=== PATIENT | female | born 1930 | race Hispanic/Latino ===

== ENCOUNTER 2018-09-21 10:14 | Outpatient (CLI) | payer MEDICARE, BC | END 2018-09-21 10:15 | disposition home or self-care (01) | LOC: LAB 10:14 ==

== ENCOUNTER 2018-10-04 08:16 | Emergency (ER) | payer MEDICARE, BC ==
[2018-10-04 08:18] VITALS: BMI 21.7
--- NOTE | 2018-10-04 08:39 | ED PDOC ---
Arrival/HPI - General Historian: Patient, Family - History of Present Illness Narrative History of Present Illness (Text): Patient is a 88 yr old female with PMH HTN, HLD, CHF with pacemaker, afib, hypothyroidism who was BIBA after waking up this morning with a sharp "pinching" pain in her left chest. She was given ASA in the field and reports resolution of the pain at this time. She otherwise denies KELLOGG, diaphoresis, dizziness, current CP, SOB, f/c, abdominal pain, n/v, dysuria, stool changes and extremity pain or weakness. 10/04/18 08:36 Time/Duration: Prior to Arrival, 1 hour Symptom Onset: Sudden Symptom Course: Resolved Quality: Other (pinching) Severity Level: 6 Activities at Onset: Rest, Sleeping <Eileen Escudero - Last Filed: 10/04/18 16:46> <Reynaldo Sánchez DO - Last Filed: 10/04/18 17:02> - General Chief Complaint: Chest Pain Time Seen by Provider: 10/04/18 08:26 Past Medical History - Provider Review Nursing Documentation Reviewed: Yes <Eileen Escudero - Last Filed: 10/04/18 16:46> Family/Social History - Physician Review Nursing Documentation Reviewed: Yes Family/Social History: Unknown Family HX <Eileen Escudero - Last Filed: 10/04/18 16:46> Allergies/Home Meds <Eileen Escudero - Last Filed: 10/04/18 16:46> <Reynaldo Sánchez DO - Last Filed: 10/04/18 17:02> Allergies/Adverse Reactions: Allergies No Known Allergies Allergy (Verified 01/19/12 09:26) Home Medications: Home Meds Medication Instructions Recorded Confirmed Aspirin 81 mg PO DAILY 05/06/13 05/06/13 Carvedilol [Coreg] 12.5 mg PO BID 05/06/13 05/06/13 Diazepam 5 mg PO BID PRN 05/06/13 05/06/13 Digoxin [Digox] 0.125 mg PO DAILY 05/06/13 05/06/13 Ezetimibe [Zetia] 10 mg PO DAILY 05/06/13 05/06/13 Furosemide 40 mg PO BID 05/06/13 05/06/13 Levothyroxine Sodium 100 mcg PO DAILY 05/06/13 05/06/13 [Levothyroxine] Mexiletine [Mexiletine HCl] 150 mg PO QID 05/06/13 05/06/13 Multimineral/Multivitamin [Marycarmen 1 tab PO DAILY 05/06/13 05/06/13 Forte] Potassium Chloride [Klor-Con] 20 meq PO DAILY 05/06/13 05/06/13 Simvastatin 20 mg PO DAILY 05/06/13 05/06/13 Temazepam 30 mg PO HS 05/06/13 05/06/13 Valsartan [Diovan] 80 mg PO DAILY 05/06/13 05/06/13 Warfarin [Coumadin] 5 mg PO DAILY 05/06/13 05/06/13 Review of Systems - Physician Review All systems were reviewed & negative as marked: Yes - Review of Systems Constitutional: absent: Fatigue, Fevers Eyes: absent: Vision Changes ENT: absent: Hearing Changes Respiratory: absent: SOB, Cough Cardiovascular: Chest Pain (resolved). absent: Palpitations, Syncope Gastrointestinal: absent: Abdominal Pain, Nausea, Vomiting Genitourinary Female: absent: Dysuria Musculoskeletal: absent: Arthralgias Skin: absent: Rash, Skin Lesions Neurological: absent: Headache, Dizziness, Focal Weakness, Speech Changes, Facial Droop Endocrine: absent: Diaphoresis <Eileen Escudero - Last Filed: 10/04/18 16:46> Physical Exam Vital Signs Reviewed: Yes Temperature: Afebrile Blood Pressure: Normal Pulse: Regular Respiratory Rate: Normal Appearance: Positive for: Well-Appearing, Non-Toxic, Comfortable Pain Distress: None Mental Status: Positive for: Alert and Oriented X 3 - Systems Exam Head: Present: Atraumatic, Normocephalic Extroacular Muscles: Present: EOMI Mouth: Present: Moist Mucous Membranes Neck: Present: Normal Range of Motion Respiratory/Chest: Present: Clear to Auscultation, Good Air Exchange. No: Respiratory Distress, Accessory Muscle Use Cardiovascular: Present: Regular Rate and Rhythm, Normal S1, S2. No: Murmurs Abdomen: No: Tenderness, Distention Upper Extremity: Present: Normal Inspection, NORMAL PULSES. No: Cyanosis, Edema Lower Extremity: Present: Normal Inspection, NORMAL PULSES. No: Edema, CALF TENDERNESS Neurological: Present: GCS=15, CN II-XII Intact, Speech Normal Skin: Present: Warm, Dry, Normal Color. No: Rashes <Eileen Escudero - Last Filed: 10/04/18 16:46> Vital Signs Temp Pulse Resp BP Pulse Ox 10/04/18 08:26 98.4 F 62 20 140/80 98 <Reynaldo Sánchez DO - Last Filed: 10/04/18 17:02> Medical Decision Making ED Course and Treatment: Impression[age] yr old female with HTN HLD CHF afib hypothyroidism who presents by ambulance for piching chest pain this am whihc has now resolved after ASA in the field Plan: CBC CMP PTT, PT INR Cardiac enzymes EKG UA CXR NPO reassess and dispo 10/04/18 08:[address] Morgan 10/04/[address] Ram covering for Dr. Morgan, discussed patient presentation imaging, EKG and lab results, Dr. Ram indicated he will call Dr. Morgan to discuss plan for patient 10/04/18 10:[address] Quijano regarding patient's presentation EKG and lab results, he indicated that he is comfortable with Patient being discharged to home and to have her follow up with him in the office in 3-5 days for routine follow up. Discussed this plan with patient and family all of whom expressed that they understood and agreed with plan to follow up with Dr. Morgan in office. 10/04/18 10:32 - Lab Interpretations Lab Results: 10/04/18 08:45 10/04/18 08:45 Lab Results 10/04/18 08:45: PT 29.3 H, INR 2.59, APTT 54.1 H 10/04/18 08:45: Sodium 140, Potassium 4.0, Chloride 105, Carbon Dioxide 32, Anion Gap 7 L, BUN 16, Creatinine 0.8, Est GFR ( Amer) > 60, Est GFR (Non-Af Amer) > 60, Random Glucose 95, Calcium 9.5, Magnesium 2.2, Total Bilirubin 0.3, AST 35, ALT 36, Alkaline Phosphatase 109, Lactate Dehydrogenase 628, Total Creatine Kinase 43, Troponin I < 0.01, Total Protein 6.5, Albumin 3.7, Globulin 2.9, Albumin/Globulin Ratio 1.3 10/04/18 08:45: WBC 6.4, RBC 4.28, Hgb 12.4, Hct 39.5, MCV 92.3, MCH 29.0, MCHC 31.4, RDW 16.4 H, Plt Count 161, MPV 9.4, Neut % (Auto) 46.8 L, Lymph % (Auto) 38.3 H, Otoe % (Auto) 11.7 H, Eos % (Auto) 2.7, Baso % (Auto) 0.5, Lymph # (Auto) 2.4, Otoe # (Auto) 0.7 H, Eos # (Auto) 0.2, Baso # (Auto) 0.03, Absolute Neuts (auto) 2.98 Interpretation: No clinic. lab abnormalty - RAD Interpretation Narrative RAD Interpretations (Text): 10/04/18 09:38 CXR: no evidence of fracture, trachea midline, no pmeumothorax, pleaural effusion or pulmonary infiltrate No acute cardiopulmonary pathology, no acute abnormalities Radiology Orders: 10/04/18 08:29 CHEST PORTABLE [RAD] Stat - EKG Interpretation EKG Interpretation (Text): No ST elevations or changes, LVH consistent with prior EKG 10/04/18 09:39 <Eileen Escudero - Last Filed: 10/04/18 16:46> ED Course and Treatment: 10/04/18 10:40 88 year old female presents to the ED for evaluation of a transient episode of chest pain resolved s/p aspirin in field. In agreement with resident note which contains more details about the patient. Patient seen and evaluated with resident. Came up with plan and treatment together. - Lab Interpretations Lab Results: PT 29.3 SECONDS (9.4-12.5) H 10/04/18 08:45 INR 2.59 10/04/18 08:45 APTT 54.1 Seconds (26.9-38.3) H 10/04/18 08:45 Troponin I < 0.01 ng/mL 10/04/18 08:45 Total Bilirubin 0.3 mg/dL (0.2-1.3) 10/04/18 08:45 AST 35 U/L (14-36) 10/04/18 08:45 ALT 36 U/L (7-56) 10/04/18 08:45 Alkaline Phosphatase 109 U/L (38-126) 10/04/18 08:45 Total Protein 6.5 g/dL (5.8-8.3) 10/04/18 08:45 Albumin 3.7 g/dL (3.0-4.8) 10/04/18 08:45 Globulin 2.9 gm/dL 10/04/18 08:45 Albumin/Globulin Ratio 1.3 (1.1-1.8) 10/04/18 08:45 - RAD Interpretation Radiology Orders: 10/04/18 08:29 CHEST PORTABLE [RAD] Stat <Reynaldo Sánchez DO - Last Filed: 10/04/18 17:02> - PA / ROUND UP RING HAND / Resident Statement / has reviewed & agrees with the documentation as recorded. MD/ has examined the patient and agrees with the treatment plan. - Scribe Statement The provider has reviewed the documentation as recorded by the Scribe Aimee Potts. All medical record entries made by the Mingibe were at my direction and personally dictated by me. I have reviewed the chart and agree that the record accurately reflects my personal performance of the history, physical exam, medical decision making, and the department course for this patient. I have also personally directed, reviewed, and agree with the discharge instructions and disposition. <Reynaldo Sánchez DO - Last Filed: 10/04/18 17:02> Disposition/Present on Arrival - Present on Arrival Any Indicators Present on Arrival: No History of DVT/PE: No History of Uncontrolled Diabetes: No Urinary Catheter: No History of Decub. Ulcer: No History Surgical Site Infection Following: None - Disposition Have Diagnosis and Disposition been Completed?: Yes Disposition Time: 10:35 Patient Plan: Discharge <Eileen Escudero - Last Filed: 10/04/18 16:46> - Disposition Disposition Time: 09:30 <Reynaldo Sánchez DO - Last Filed: 10/04/18 17:02> - Disposition Diagnosis: Atypical chest pain Disposition: HOME/ ROUTINE Condition: STABLE Discharge Instructions (ExitCare): Chest Pain (DC), Chest Pain (ED) Additional Instructions: PLease follow up wiht your primary care doctor Dr. Morgan within 3-5 days of discharge. If your symptoms worsen or if new concerning symptoms develop please return to the nearest ER immediately for further evaluation. Forms: Buddy (Romanian)
[2018-10-04 08:56] VITALS: TEMP 98.4; O2SAT 98
[2018-10-04 09:01] LABS: BASO # 0.03 K/mm3 (0.0-2.0); BASO % 0.5 % (0.0-3.0); EOS # 0.2 (0.0-0.7); EOS % 2.7 % (1.5-5.0); HEMOGLOBIN 12.4 g/dL (12.0-16.0); LYMPH # 2.4 (1.2-3.4); LYMPH % 38.3 % (22.0-35.0); MEAN CELL VOLUME 92.3 fl (80.0-105.0); MEAN CORPUSCULAR HGB CONC 31.4 g/dl (31.0-37.0); MEAN PLATELET VOLUME 9.4 fl (7.0-11.0); MONO # 0.7 (0.1-0.6); MONO % 11.7 % (1.0-6.0); RBC 4.28 10^6/uL (3.5-6.1); RED CELL DISTRIBUTION WIDTH 16.4 % (11.5-14.5); WHITE BLOOD COUNT 6.4 10^3/uL (4.5-11.0)
[2018-10-04 09:12] LABS: INR 2.59; PARTIAL THROMBOPLASTIN TIME 54.1 Seconds (26.9-38.3); PROTHROMBIN TIME 29.3 SECONDS (9.4-12.5)
[2018-10-04 09:25] LABS: ALB/GLOB RATIO 1.3 (1.1-1.8); ALBUMIN 3.7 g/dL (3.0-4.8); ALT/SGPT 36 U/L (7-56); AST/SGOT 35 U/L (14-36); BLOOD UREA NITROGEN 16 mg/dL (7-21); CALCIUM 9.5 mg/dL (8.4-10.5); GFR NON-AFRICAN AMERICAN > 60
[2018-10-04 09:27] LABS: TROPONIN I < 0.01 ng/mL
--- NOTE | 2018-10-04 09:56 | RAD ---
Date of service: 10/04/2018 HISTORY: chest pain COMPARISON: Portable chest 07/25/2017. FINDINGS: LUNGS: No active pulmonary disease. PLEURA: No significant pleural effusion identified, no pneumothorax apparent. CARDIOVASCULAR: Calcific atherosclerotic changes are seen related to the thoracic aorta. Stable cardiac size. No pulmonary vascular congestion. AICD/pacemaker reiterated. OSSEOUS STRUCTURES: No significant abnormalities. VISUALIZED UPPER ABDOMEN: Normal. OTHER FINDINGS: None. IMPRESSION: Stable chest radiograph with no acute interval cardiopulmonary changes appreciable. AICD/pacemaker reiterated, unchanged in appearance.
[2018-10-04 11:32] VITALS: PULSE 64; RESP 18
[2018-10-04 11:34] VITALS: BP 117/61
--- NOTE | 2018-10-04 11:39 | CARD ---
APPROVED REPORT Date of service: 10/04/2018 EKG Measurement Heart [id number] <Conclusion> Electronic atrial pacemaker Left Ventral Hypertrophy. [facility] Infer[facility] Wall OR.
== END 2018-10-04 11:34 | disposition home or self-care (01) ==
LOC: ED 08:16
DX: R07.89 Other chest pain (principal); E03.9 Hypothyroidism, unspecified; E78.5 Hyperlipidemia, unspecified; I48.91 Unspecified atrial fibrillation; I50.9 Heart failure, unspecified; I10 Essential (primary) hypertension; Z95.0 Presence of cardiac pacemaker

== ENCOUNTER 2018-10-19 13:01 | Outpatient (CLI) | payer MEDICARE, BC | END 2018-10-19 13:02 | disposition home or self-care (01) | LOC: LAB 13:01 | DX: I48.0 Paroxysmal atrial fibrillation (principal); Z79.01 Long term (current) use of anticoagulants ==

== ENCOUNTER 2018-11-02 11:34 | Outpatient (CLI) | payer MEDICARE, BC | END 2018-11-02 11:35 | disposition home or self-care (01) | LOC: LAB 11:34 | DX: Z79.01 Long term (current) use of anticoagulants (principal); I48.0 Paroxysmal atrial fibrillation ==

== ENCOUNTER 2018-11-16 15:08 | Outpatient (CLI) | payer MEDICARE, BC | END 2018-11-16 15:09 | disposition home or self-care (01) | LOC: LAB 15:08 ==

== ENCOUNTER 2018-11-30 13:15 | Outpatient (CLI) | payer MEDICARE, BC | END 2018-11-30 13:16 | disposition home or self-care (01) | LOC: LAB 13:15 ==

== ENCOUNTER → 2018-12-14 | Outpatient (CLI) | payer MEDICARE, BC | LOC: LAB 16:22 ==

== ENCOUNTER 2018-12-28 11:42 | Outpatient (CLI) | payer MEDICARE, BC | END 2018-12-28 11:43 | disposition home or self-care (01) | LOC: LAB 11:42 ==

== ENCOUNTER 2019-01-18 13:58 | Outpatient (CLI) | payer MEDICARE, BC | END 2019-01-18 13:59 | disposition home or self-care (01) | LOC: LAB 13:58 ==

== ENCOUNTER 2019-02-01 10:46 | Outpatient (CLI) | payer MEDICARE, BC | END 2019-02-01 10:47 | disposition home or self-care (01) | LOC: LAB 10:46 ==